=== PATIENT | female | born 1945 | race Caucasian/White ===

== ENCOUNTER 2020-08-07 07:20 | Inpatient (IN) | payer MEDICARE, BC ==
[2020-07-31 11:21] LABS: BASOPHILS # (AUTO) 0.1 X10'3 (0-0.2); BASOPHILS % (AUTO) 1.1 % (0-1); EOSINOPHILS # (AUTO) 0.1 X10'3 (0-0.9); EOSINOPHILS % (AUTO) 2.6 % (0-6); LYMPHOCYTES # (AUTO) 1.4 X10'3 (1.1-4.8); LYMPHOCYTES % (AUTO) 26.9 % (21-51); MEAN CORPUSCULAR HEMOGLOBIN 29.4 PG (27.0-31.0); MEAN CORPUSCULAR HGB CONC 33.8 g/dL (33.0-36.5); MEAN PLATELET VOLUME 8.5 FL (7.4-10.4); MONOCYTES # (AUTO) 0.4 X10'3 (0-0.9); MONOCYTES % (AUTO) 8.4 % (2-12); NEUTROPHILS # (AUTO) 3.1 X10'3 (1.8-7.7); PRE OP HEMATOCRIT 40.3 % (35.0-45.0); PRE OP HEMOGLOBIN 13.6 g/dL (12.0-16.0); PRE OP PLATELET COUNT 240 X10'3 (140-440); RED BLOOD COUNT 4.64 X10'6 (4.20-5.60)
[2020-07-31 11:35] LABS: ALBUMIN 3.9 G/DL (3.4-5.0); ALBUMIN/GLOBULIN RATIO 1.1 (1.1-1.5); ALKALINE PHOSPHATASE 94 IU/L (46-116); BLOOD UREA NITROGEN 28 MG/DL (7-18); BUN/CREATININE RATIO 34.6 (6.6-38.0); CALCIUM 9.5 MG/DL (8.5-10.1); CHLORIDE 106 MMOL/L (99-107); CREATININE 0.81 MG/DL (0.40-0.90); PRE OP ALT 26 U/L (30-65); PRE OP ANION GAP 9 (8-16); PRE OP AST 16 U/L (10-37); PRE OP BILIRUB, TOTAL 0.3 MG/DL (0.0-1.0); PRE OP GLUCOSE 107 MG/DL (70-104); PRE OP POTASSIUM 3.6 MMOL/L (3.4-5.1); PRE OP SODIUM 142 MMOL/L (135-145); TOTAL CARBON DIOXIDE 26.9 MMOL/L (24-32); TOTAL PROTEIN 7.5 G/DL (6.4-8.2); eGFR 69 ML/MIN
[2020-07-31 11:39] LABS: HEMOGLOBIN A1C 5.8 % (4.5-6.2)
[~2020-08-07] VITALS: Ht 160 cm; Wt 70.3 kg
[2020-08-07] VITALS (21 sets, daily range): BP systolic 88–144; BP diastolic 43–68
[~2020-08-07 07:20] MED LIST: AMIT10TA6 PO; AMLO10TA13 PO; CYCL-1 PO; GABA-530 PO; HYDR25TA5 PO; LOSA100T57 PO; MELA10TA2 PO; PANT40TA54 PO; PRAM1TAB6 PO; SERT-434 PO; cefazolin/dext.iso 2gm/100ml IV ONE; famotidine 20mg tablet PO ONE; ringers solution, lacted 1,000 ML IV SCH; vancomycin 1,500 MG in NS 300ml IV soln IV ONE
[2020-08-07 08:43] LABS: CLARITY,URINE CLEAR (Clear); COLOR,URINE STRAW (Yellow); GLUCOSE, URINE NEGATIVE (Neg); KETONES,URINE NEGATIVE (Neg); LEUKOCYTE ESTERASE ,URINE NEGATIVE (Neg); NITRITES, URINE NEGATIVE (Neg); OCCULT BLOOD,URINE NEGATIVE (Neg); PROTEIN,URINE NEGATIVE (Neg); UROBILINOGEN,URINE 0.2 E.U/dL (0.2-1.0)
[2020-08-07 08:47] LABS: UA COLLECTION TYPE VOIDED
[2020-08-07] MEDS: albuterol 2.5 MG/3 ML nebule NEB PRN ×2 (10:44→20:55)
[2020-08-07] MEDS ORDERED: MIDAZolam 1 MG/ML 5ML VIAL ONE (11:15)
[2020-08-07] MEDS ORDERED: fentaNYL/PF 50MCG/1 ML 2ML syringe ONE (11:15)
[2020-08-07] MEDS ORDERED: propofol inj 20 ML IV ONE (11:16)
[2020-08-07] MEDS ORDERED: ROPIVAcaine 0.5% (5mg/ml) 30ml vial ONE (11:58)
[2020-08-07] MEDS ORDERED: ePHEDrine 50MG/ML INJ. ONE (12:08)
[2020-08-07] MEDS ORDERED: dexamethasone sod phosphate 4mg/ml inj. ONE (12:09)
[2020-08-07] MEDS ORDERED: ondansetron/PF 4mg/2ml inj ONE (12:09)
[2020-08-07] MEDS ORDERED: ROPIVAcaine 0.2% (10 MG/5 ML) BOLUS INJECTION POPLITEAL PRN (12:25)
[2020-08-07] MEDS ORDERED: morphine 4 MG/ML inj SYRINge IV PRN (12:25)
[2020-08-07] MEDS ORDERED: ROPIVAcaine 0.2%/PF PUMP/bolus 545 ML POPLITEAL SCH (12:25)
[2020-08-07] MEDS ORDERED: proCHLORperazine 10 MG/2 ml inj IV PRN (12:25)
[2020-08-07] MEDS ORDERED: ondansetron/PF 4mg/2ml inj IV PRN ×2 (12:25→14:35)
[2020-08-07] MEDS ORDERED: meperidine/PF 25mg/ml syringe IV PRN ×3 (12:25)
[2020-08-07] MEDS ORDERED: morphine 2 MG/ML inj. syringe IV PRN (12:25)
[2020-08-07] MEDS ORDERED: ringers solution, lacted 1,000 ML IV SCH (12:25)
[2020-08-07] MEDS ORDERED: bacitracin 15gm ointment TP ONE (14:25)
[2020-08-07] MEDS ORDERED: acetaminophen 325mg tablet PO PRN (14:35)
[2020-08-07] MEDS ORDERED: bisacodyl 10mg suppository rectal RC PRN (14:35)
[2020-08-07] MEDS ORDERED: magnesium hydroxide 30ml (MOM) UD suspension PO PRN (14:35)
[2020-08-07] MEDS ORDERED: diphenhydrAMINE 25mg capsule PO PRN ×2 (14:35)
[2020-08-07] MEDS ORDERED: HYDROcodone/acetaminophen 10/325mg tab PO PRN ×2 (14:35)
--- NOTE | 2020-08-07 16:21 | NUR ---
Report called to receiving nurse. Transferred via BED, 2 BAGS OF Belongings, GLASSES, BILAT HEARING AIDS SENT W/PT TO ROOM 4022A. BLL, CALL LIGHT GIVEN, SIDE RAILS UP X 2. RECEIVING RN NOTIFIED OF PTS ARRIVAL. Special Issues communicated to receiving nurse. YES. Addendum: 08/07/20 at 1645 by Bridget Spence RN Amended: Links added.
--- NOTE | 2020-08-07 18:20 | NUR ---
Problems reprioritized. Patient report given to Chapis, questions answered & plan of care reviewed with Chapis.
--- NOTE | 2020-08-07 18:28 | NUR ---
Patient in room ORTHO 4022. I have received report from Brianne RAMIREZ and had the opportunity to ask questions and assume patient care.
[2020-08-07] MEDS: potassium cl 20mEq in 1/2 NS 1,000 ML IV SCH ×2 (18:56→22:34)
[2020-08-07] MEDS: ceFAZolin/D5W- 1GM premix 50 ML IV SCH (19:45)
[2020-08-07] MEDS ORDERED: sennosides 8.6mg tablet PO SCH (21:00)
[2020-08-07] MEDS ORDERED: Melatonin 3mg tablet PO SCH (22:30)
[2020-08-08 02:00] VITALS: BP 122/60
[2020-08-08 02:15] VITALS: BP 122/60
[2020-08-08] MEDS: ceFAZolin/D5W- 1GM premix 50 ML IV SCH (02:58)
--- NOTE | 2020-08-08 06:16 | NUR ---
Problems reprioritized. Patient report given, questions answered & plan of care reviewed with Shanna RAMIREZ.
--- NOTE | 2020-08-08 06:18 | NUR ---
Patient in room ORTHO 4022. I have received report from Chano RAMIREZ and had the opportunity to ask questions and assume patient care.
[2020-08-08 06:45] VITALS: BP 132/78
[2020-08-08] MEDS: potassium cl 20mEq in 1/2 NS 1,000 ML IV SCH (06:46)
[2020-08-08 06:47] LABS: BASOPHILS % (AUTO) 0.5 % (0-1); EOSINOPHILS % (AUTO) 0 % (0-6); HEMATOCRIT 31.9 % (35.0-45.0); LYMPHOCYTES # (AUTO) 1.3 X10'3 (1.1-4.8); LYMPHOCYTES % (AUTO) 16.1 % (21-51); MEAN CORPUSCULAR HGB CONC 34.5 g/dL (33.0-36.5); MEAN CORPUSCULAR VOLUME 86.9 FL (78-98); MEAN PLATELET VOLUME 8.7 FL (7.4-10.4); MONOCYTES % (AUTO) 12.2 % (2-12); NEUTROPHILS # (AUTO) 5.7 X10'3 (1.8-7.7); NEUTROPHILS % (AUTO) 71.2 % (42-75); PLATELET COUNT 213 X10'3 (140-440); RED BLOOD COUNT 3.67 X10'6 (4.20-5.60)
[2020-08-08 07:08] LABS: ANION GAP 10 (8-16); CHLORIDE 106 MMOL/L (99-107); SODIUM 141 MMOL/L (135-145); TOTAL CARBON DIOXIDE 25.2 MMOL/L (24-32)
[2020-08-08] MEDS ORDERED: gabapentin 300mg capsule PO PRN (07:40)
[2020-08-08] MEDS ORDERED: amitriptyline 10mg tablet PO PRN (07:40)
[2020-08-08] MEDS ORDERED: cyclobenzaprine 10mg tablet PO SCH (08:00)
[2020-08-08] MEDS ORDERED: pantoprazole 40mg Tablet.DR PO SCH (08:00)
[2020-08-08] MEDS ORDERED: sertraline 50mg tablet PO SCH (08:00)
[2020-08-08] MEDS ORDERED: amLODIPine 5mg tablet PO SCH (08:00)
[2020-08-08] MEDS ORDERED: HYDROchlorothiazide 25mg tablet PO SCH (08:00)
[2020-08-08] MEDS: albuterol 2.5 MG/3 ML nebule NEB PRN (08:09)
[2020-08-08] MEDS ORDERED: aspirin 325mg tablet PO SCH (08:30)
--- NOTE | 2020-08-08 08:33 | NUR ---
placed a call to dr. dewitt regarding patients home meds because they were not restarted recieved call back getting the okay to restart all home meds.
[2020-08-08 10:07] VITALS: BP 110/37
--- NOTE | 2020-08-08 14:02 | NUR ---
Patient discharged to home, 18 gauge piv removed from right hand, cannula intact no s/s of phlebitis. Discharge instructions given to both patient and her Michael. Pre medicated with norco prior to discharge. Follow up with Dr. Urban already scheduled
[2020-08-08] MEDS ORDERED: enoxaparin 40mg/0.4ml syringe SUBCUT SCH (20:00)
[2020-08-08] MEDS ORDERED: pramipexole 1mg tablet PO SCH (21:00)
[2020-08-08] MEDS ORDERED: Melatonin 3mg tablet PO SCH (21:00)
[2020-08-08] MEDS ORDERED: losartan 50mg tablet PO SCH (21:00)
== END 2020-08-08 14:00 | disposition home or self-care (01) | DRG 469 ==
LOC: PAS 07:20 → EDSTATUS 07:30 → PAS 14:30 → ORTHO 4S 14:33 → PAS 08-08 14:00 → ORTHO 4S 08-08 14:00
PROVIDERS: ADMIT Podiatrist Foot & Ankle Surgery; ATTEND Podiatrist Foot & Ankle Surgery
PROC: 0Y6V0Z1 Detachment at Right 4th Toe, High, Open Approach (ICD-10-PCS; 2020-08-07)
PROC: 3E0T3BZ Introduction of Anesthetic Agent into Peripheral Nerves and Plexi, Percutaneous Approach (ICD-10-PCS; 2020-08-07)
PROC: 3E0T33Z Introduction of Anti-inflammatory into Peripheral Nerves and Plexi, Percutaneous Approach (ICD-10-PCS; 2020-08-07)
PROC: 0SPF0JZ Removal of Synthetic Substitute from Right Ankle Joint, Open Approach (ICD-10-PCS; 2020-08-07)
PROC: 0SRF0JZ Replacement of Right Ankle Joint with Synthetic Substitute, Open Approach (ICD-10-PCS; principal; 2020-08-07 11:19)
DX: T84.038A Mechanical loosening of other internal prosthetic joint, initial encounter (principal); M19.071 Primary osteoarthritis, right ankle and foot; M20.41 Other hammer toe(s) (acquired), right foot; F32.9 Major depressive disorder, single episode, unspecified; I10 Essential (primary) hypertension; G89.29 Other chronic pain; M21.072 Valgus deformity, not elsewhere classified, left ankle; M21.40 Flat foot [pes planus] (acquired), unspecified foot; J45.909 Unspecified asthma, uncomplicated; Z83.3 Family history of diabetes mellitus; Z79.899 Other long term (current) drug therapy; Z91.041 Radiographic dye allergy status
CPT/HCPCS: 36415; 73600; 76000; 80051; 80053; 81003; 82948; 83036; 85025; 87081; 93005; 94640; 94664; 94760; 97161; 97530; A4618; A6223; A6253; A6449; A7000; C1713; C1776; G0378; J0690; J1100; J2250; J2405; J2704; J2795; J3010; J3370; J3480; J7040; J7120

== ENCOUNTER 2023-03-31 13:26 | Emergency (ER) | payer MEDICARE, BC ==
[~2023-03-31] VITALS: Ht 154.9 cm; Wt 72.7 kg
[~2023-03-31 13:26] MED LIST changes: -LOSA100T57 PO; +LOSA100T58 PO; -cefazolin/dext.iso 2gm/100ml IV ONE; -famotidine 20mg tablet PO ONE; -ringers solution, lacted 1,000 ML IV SCH; -vancomycin 1,500 MG in NS 300ml IV soln IV ONE
[2023-03-31 13:55] LABS: BASOPHILS # (AUTO) 0.1 X10'3 (0-0.2); BASOPHILS % (AUTO) 0.8 % (0-1); EOSINOPHILS # (AUTO) 0.1 X10'3 (0-0.9); EOSINOPHILS % (AUTO) 0.6 % (0-6); HEMATOCRIT 44.9 % (35.0-45.0); LYMPHOCYTES # (AUTO) 1.2 X10'3 (1.1-4.8); LYMPHOCYTES % (AUTO) 7.1 % (21-51); MEAN CORPUSCULAR HEMOGLOBIN 29.3 PG (27.0-31.0); MEAN CORPUSCULAR HGB CONC 33.5 g/dL (33.0-36.5); MEAN CORPUSCULAR VOLUME 87.5 FL (78-98); MEAN PLATELET VOLUME 8.8 FL (7.4-10.4); MONOCYTES % (AUTO) 6.3 % (2-12); NEUTROPHILS % (AUTO) 85.2 % (42-75); PLATELET COUNT 285 X10'3 (140-440); RED BLOOD COUNT 5.13 X10'6 (4.20-5.60); RED CELL DISTRIBUTION WIDTH 13.3 % (11.5-14.5); WHITE BLOOD COUNT 16.4 X10'3 (4.5-11.0)
[2023-03-31 14:27] LABS: ALANINE AMINOTRANSFERASE 26 U/L (12-78); ALBUMIN 3.8 G/DL (3.4-5.0); ALBUMIN/GLOBULIN RATIO 1.1 (1.1-1.5); ALKALINE PHOSPHATASE 83 IU/L (46-116); ANION GAP 10 (8-16); ASPARTATE AMINO TRANSFERASE 17 U/L (10-37); BILIRUBIN,TOTAL 0.8 MG/DL (0.1-1.0); BLOOD UREA NITROGEN 20 MG/DL (7-18); BUN/CREATININE RATIO 21.1 (10.0-20.0); CALCIUM 9.8 MG/DL (8.5-10.1); CHLORIDE 103 MMOL/L (99-107); CREATININE 0.95 MG/DL (0.40-0.90); GLUCOSE 130 MG/DL (70-104); POTASSIUM 3.9 MMOL/L (3.5-5.1); PRO BRAIN NATRIURETIC PEPTIDE 568 PG/ML (0-450); SODIUM 139 MMOL/L (135-145); TOTAL CARBON DIOXIDE 25.8 MMOL/L (24-32); TOTAL PROTEIN 7.4 G/DL (6.4-8.2); eCRCL 37 ML/MIN; eGFR 57 ML/MIN
[2023-03-31] MEDS ORDERED: ondansetron 4mg rapidly disintigrating tab PO ONE (17:10)
[2023-03-31 17:30] LABS: LIPASE 22 U/L (16-77)
[2023-03-31] MEDS ORDERED: mag hydrox/Alum hydrox/simeth 30ml oral suspension PO ONE (17:35)
[2023-03-31] MEDS ORDERED: ketorolac trometh. 30mg/ml inj. IV ONE (17:35)
[2023-03-31] MEDS ORDERED: LIDOcaine Viscous 15ml cup MM ONE (17:35)
[2023-03-31] MEDS ORDERED: normal saline 1000ML IV soln IVB ONE (17:35)
[2023-03-31 17:57] VITALS: BP 132/62; PULSE 61; RESP 20; TEMP 98.3; O2SAT 95
[2023-03-31] MEDS ORDERED: ONDA4TAB12 PO (18:51)
== END 2023-03-31 19:16 | disposition home or self-care (01) ==
LOC: ER 13:27
DX: S46.919A Strain of unspecified muscle, fascia and tendon at shoulder and upper arm level, unspecified arm, initial encounter (principal); M54.9 Dorsalgia, unspecified; I10 Essential (primary) hypertension; Z91.041 Radiographic dye allergy status; Z79.899 Other long term (current) drug therapy; X58.XXXA Exposure to other specified factors, initial encounter; Y93.89 Activity, other specified; Y92.89 Other specified places as the place of occurrence of the external cause; Y99.8 Other external cause status
CPT/HCPCS: 36415; 71045; 80053; 83690; 83880; 84484; 85025; 93005; 96360; 99285; J7030

== ENCOUNTER 2023-06-20 13:17 | Emergency (ER) | payer MEDICARE, BC ==
[~2023-06-20] VITALS: Ht 154.9 cm; Wt 71.6 kg
[~2023-06-20 13:17] MED LIST changes: +ONDA4TAB12 PO
[2023-06-20 14:44] LABS: BASOPHILS # (AUTO) 0.1 X10'3 (0-0.2); BASOPHILS % (AUTO) 1.5 % (0-1); EOSINOPHILS # (AUTO) 0.2 X10'3 (0-0.9); EOSINOPHILS % (AUTO) 2.4 % (0-6); HEMATOCRIT 43.4 % (35.0-45.0); HEMOGLOBIN 14.7 g/dl (12.0-16.0); LYMPHOCYTES # (AUTO) 1.6 X10'3 (1.1-4.8); LYMPHOCYTES % (AUTO) 25.6 % (21-51); MEAN CORPUSCULAR HEMOGLOBIN 29.6 PG (27.0-31.0); MEAN CORPUSCULAR HGB CONC 33.8 g/dL (33.0-36.5); MEAN CORPUSCULAR VOLUME 87.7 FL (78-98); MEAN PLATELET VOLUME 9.4 FL (7.4-10.4); MONOCYTES # (AUTO) 0.6 X10'3 (0-0.9); NEUTROPHILS # (AUTO) 3.9 X10'3 (1.8-7.7); NEUTROPHILS % (AUTO) 61.5 % (42-75); PLATELET COUNT 241 X10'3 (140-440); RED BLOOD COUNT 4.95 X10'6 (4.20-5.60); RED CELL DISTRIBUTION WIDTH 14.1 % (11.5-14.5); WHITE BLOOD COUNT 6.3 X10'3 (4.5-11.0)
[2023-06-20 15:00] LABS: ALANINE AMINOTRANSFERASE 22 U/L (12-78); ALBUMIN 3.4 G/DL (3.4-5.0); ALKALINE PHOSPHATASE 79 IU/L (46-116); ANION GAP 13 (8-16); ASPARTATE AMINO TRANSFERASE 12 U/L (10-37); BILIRUBIN,TOTAL 0.4 MG/DL (0.1-1.0); BLOOD UREA NITROGEN 25 MG/DL (7-18); BUN/CREATININE RATIO 28.4 (10.0-20.0); CALCIUM 9.2 MG/DL (8.5-10.1); CHLORIDE 110 MMOL/L (99-107); CREATININE 0.88 MG/DL (0.40-0.90); POTASSIUM 3.9 MMOL/L (3.5-5.1); SODIUM 149 MMOL/L (135-145); TOTAL CARBON DIOXIDE 26.4 MMOL/L (24-32); TOTAL PROTEIN 6.9 G/DL (6.4-8.2); eCRCL 40 ML/MIN; eGFR 62 ML/MIN
[2023-06-20 15:07] LABS: PRO BRAIN NATRIURETIC PEPTIDE 436 PG/ML (0-450)
[2023-06-20 15:10] LABS: GLUCOSE 130 MG/DL (70-104)
[2023-06-20] MEDS ORDERED: APIX5TAB3 PO (18:05)
[2023-06-20] MEDS ORDERED: PRAM1TAB6 PO (18:05)
[2023-06-20] MEDS ORDERED: HYDR25TA5 PO (18:05)
[2023-06-20 18:21] VITALS: BP 163/91; PULSE 88; RESP 16; TEMP 97.9; O2SAT 100
== END 2023-06-20 18:23 | disposition home or self-care (01) ==
LOC: ER 13:18
DX: I10 Essential (primary) hypertension (principal); I48.91 Unspecified atrial fibrillation; Z91.041 Radiographic dye allergy status; Z79.899 Other long term (current) drug therapy
CPT/HCPCS: 36415; 71045; 80053; 83880; 84484; 85025; 93005; 99285

== ENCOUNTER 2023-08-23 21:31 | Inpatient (IN) | payer MEDICARE, OTHER ==
[~2023-08-23] VITALS: Ht 154.9 cm; Wt 73.5 kg
[2023-08-23] VITALS (7 sets, daily range): BP systolic 130–174; BP diastolic 64–100; PULSE 80–90; RESP 15–16; O2SAT 90–92
[~2023-08-23 21:31] MED LIST changes: +ALBU8HFA INH; +APIX5TAB3 PO; +CEFD300C3 PO; -CYCL-1 PO; -HYDR25TA5 PO; +IPRA4AER IH; +LAN0.125T PO; -LOSA100T58 PO; -MELA10TA2 PO; +METO-411 PO; -ONDA4TAB12 PO; +VALS320T17 PO
[2023-08-23] MEDS ORDERED: iohexol 350MG/ML 100ml bottle IV ONE (21:38)
[2023-08-23 22:04] LABS: BASOPHILS # (AUTO) 0.1 X10'3 (0-0.2); BASOPHILS % (AUTO) 1.1 % (0-1); EOSINOPHILS # (AUTO) 0.2 X10'3 (0-0.9); EOSINOPHILS % (AUTO) 2.6 % (0-6); HEMATOCRIT 36.6 % (35.0-45.0); HEMOGLOBIN 12.6 g/dl (12.0-16.0); LYMPHOCYTES # (AUTO) 2.2 X10'3 (1.1-4.8); LYMPHOCYTES % (AUTO) 30.5 % (21-51); MEAN CORPUSCULAR HEMOGLOBIN 29.7 PG (27.0-31.0); MEAN CORPUSCULAR HGB CONC 34.4 g/dL (33.0-36.5); MEAN CORPUSCULAR VOLUME 86.3 FL (78-98); MEAN PLATELET VOLUME 8.6 FL (7.4-10.4); MONOCYTES # (AUTO) 0.6 X10'3 (0-0.9); MONOCYTES % (AUTO) 7.5 % (2-12); NEUTROPHILS # (AUTO) 4.3 X10'3 (1.8-7.7); NEUTROPHILS % (AUTO) 58.3 % (42-75); PLATELET COUNT 340 X10'3 (140-440); RED BLOOD COUNT 4.24 X10'6 (4.20-5.60); RED CELL DISTRIBUTION WIDTH 14.1 % (11.5-14.5); WHITE BLOOD COUNT 7.3 X10'3 (4.5-11.0)
[2023-08-23 22:12] LABS: ALBUMIN 3.6 G/DL (3.4-5.0); ANION GAP 7 (8-16); BLOOD UREA NITROGEN 26 MG/DL (7-18); BUN/CREATININE RATIO 29.9 (10.0-20.0); CALCIUM 9.8 MG/DL (8.5-10.1); CHLORIDE 109 MMOL/L (99-107); CREATININE 0.87 MG/DL (0.40-0.90); GLUCOSE 119 MG/DL (70-104); POTASSIUM 4.1 MMOL/L (3.5-5.1); SODIUM 143 MMOL/L (135-145); TOTAL CARBON DIOXIDE 26.8 MMOL/L (24-32); eCRCL 41 ML/MIN; eGFR 63 ML/MIN
[2023-08-23 22:16] LABS: APTT 22 SECONDS (22-32); PROTHROMBIN TIME 10.1 SECONDS (9.0-12.0)
[2023-08-23] MEDS ORDERED: LORazepam 2 mg/ml vial IV ONE (22:25)
[2023-08-23] MEDS: diazepam inj 5 MG/ML inj. IV ONE (22:40)
[2023-08-23] MEDS: TENECTEPLASE IV ONE (22:49)
[2023-08-23] MEDS: [UNRECOGNIZED DRUG - OTHER] IV ONE (22:49)
[2023-08-24] VITALS (50 sets, daily range): BP systolic 94–157; BP diastolic 37–98; PULSE 52–107; RESP 10–29; O2SAT 89–96
[2023-08-24] MEDS: gabapentin 300mg capsule PO ONE (00:12)
[2023-08-24] MEDS ORDERED: niCARDipine-NS 40mg/200ml IVPB 200 ML IV PRN (00:30)
[2023-08-24] MEDS ORDERED: tenecteplase 50mg kit IV ONE (01:00)
[2023-08-24] MEDS: pramipexole 1mg tablet PO SCH (01:37)
[2023-08-24] MEDS: LORazepam 1 MG tablet PO PRN (02:50)
[2023-08-24] MEDS ORDERED: LAN0.125T PO (08:32)
[2023-08-24] MEDS ORDERED: AMLO5TAB16 PO (08:32)
[2023-08-24] MEDS ORDERED: EZET10TA48 PO (08:32)
[2023-08-24] MEDS ORDERED: ALBU18HF2 IH (08:32)
[2023-08-24] MEDS ORDERED: PRAM1TAB6 PO (08:32)
[2023-08-24] MEDS ORDERED: VALS160T30 PO (08:32)
[2023-08-24] MEDS ORDERED: CLON0.1T2 PO (08:32)
[2023-08-24] MEDS ORDERED: HYDR25TA4 PO (08:32)
[2023-08-24] MEDS ORDERED: CLOB30CR11 TOP (08:32)
[2023-08-24] MEDS ORDERED: APIX5TAB3 PO (08:32)
[2023-08-24] MEDS ORDERED: METO-411 PO (08:32)
[2023-08-24] MEDS ORDERED: TIMO5DRO15 EACHEYE (08:32)
[2023-08-24] MEDS ORDERED: acetaminophen 325mg tablet PO PRN (11:40)
[2023-08-24] MEDS ORDERED: clobetasol 0.05% cream 30gm TP SCH (13:50)
[2023-08-24] MEDS ORDERED: amitriptyline 10mg tablet PO PRN (13:50)
[2023-08-24 18:51] LABS: HEMOGLOBIN A1C 5.7 % (4.5-6.2)
[2023-08-24] MEDS: gabapentin 100mg capsule PO PRN (18:52)
[2023-08-24] MEDS: apixaban 5mg tablet PO SCH (20:00)
[2023-08-24] MEDS: pantoprazole 40mg Tablet.DR PO SCH (20:07)
[2023-08-24] MEDS: albuterol 2.5 MG/3 ML nebule NEB PRN (20:36)
[2023-08-24] MEDS: pramipexole 0.25mg tablet PO SCH (22:01)
[2023-08-25] VITALS (35 sets, daily range): BP systolic 101–174; BP diastolic 40–71; PULSE 69–142; RESP 12–33; TEMP 99; O2SAT 89–96
[2023-08-25 06:20] LABS: CHOL/HDL RATIO 3.8 (0.00-4.99); CHOLESTEROL 172 MG/DL (0-200); HDL CHOLESTEROL 45 MG/DL (35-60); LDL CHOLESTEROL 102 MG/DL (50-100); TRIGLYCERIDES 134 MG/DL (20-135)
[2023-08-25] MEDS: HALLS - SOOTHE MENTHOL 1.8 MG cough drop LOZENGE MM PRN (06:33)
[2023-08-25] MEDS: timolol 0.5% ophthalmic solution 5ml bottle EACHEYE SCH (07:27)
[2023-08-25] MEDS: cloNIDine 0.1 mg tablet PO SCH (07:27)
[2023-08-25] MEDS: amLODIPine 5mg tablet PO SCH (07:28)
[2023-08-25] MEDS: sertraline 50mg tablet PO SCH (07:28)
[2023-08-25] MEDS: metoprolol succinate 25mg (24-HOUR) SR. Tablet PO SCH (07:28)
[2023-08-25] MEDS: ezetimibe 10mg tablet PO SCH (07:28)
[2023-08-25] MEDS: digoxin 125mcg (0.125mg) tablet PO SCH (07:28)
[2023-08-25] MEDS: losartan 50mg tablet PO SCH (07:28)
[2023-08-25] MEDS: HYDROchlorothiazide 25mg tablet PO SCH (07:28)
[2023-08-25] MEDS ORDERED: pramipexole 1mg tablet PO SCH (08:00)
[2023-08-25] MEDS ORDERED: CLON0.1T2 PO (08:31)
[2023-08-25] MEDS ORDERED: cloNIDine 0.1 mg tablet PO PRN (08:40)
[2023-08-25] MEDS: guaiFENesin 200mg/20mg codeine phos 10ml UD oral syrup PO PRN (15:08)
[2023-08-25] MEDS: ondansetron/PF 4mg/2ml inj IV PRN (16:40)
[2023-08-25] MEDS: ipratropium/albuterol 3ml nebule NEB PRN (16:41)
[2023-08-25 18:40] LABS: BASOPHILS # (AUTO) 0.1 X10'3 (0-0.2); BASOPHILS % (AUTO) 0.7 % (0-1); EOSINOPHILS % (AUTO) 0.2 % (0-6); HEMATOCRIT 34.7 % (35.0-45.0); HEMOGLOBIN 11.6 g/dl (12.0-16.0); LYMPHOCYTES # (AUTO) 0.5 X10'3 (1.1-4.8); LYMPHOCYTES % (AUTO) 6.7 % (21-51); MEAN CORPUSCULAR HEMOGLOBIN 29.2 PG (27.0-31.0); MEAN CORPUSCULAR HGB CONC 33.5 g/dL (33.0-36.5); MEAN CORPUSCULAR VOLUME 87.4 FL (78-98); MEAN PLATELET VOLUME 8.6 FL (7.4-10.4); MONOCYTES # (AUTO) 0.6 X10'3 (0-0.9); NEUTROPHILS # (AUTO) 6.4 X10'3 (1.8-7.7); NEUTROPHILS % (AUTO) 84.4 % (42-75); PLATELET COUNT 224 X10'3 (140-440); RED BLOOD COUNT 3.97 X10'6 (4.20-5.60); RED CELL DISTRIBUTION WIDTH 14.1 % (11.5-14.5); WHITE BLOOD COUNT 7.5 X10'3 (4.5-11.0)
[2023-08-25 18:58] LABS: ALANINE AMINOTRANSFERASE 24 U/L (12-78); ALBUMIN 3.1 G/DL (3.4-5.0); ALBUMIN/GLOBULIN RATIO 0.9 (1.1-1.5); ALKALINE PHOSPHATASE 66 IU/L (46-116); ANION GAP 7 (8-16); ASPARTATE AMINO TRANSFERASE 12 U/L (10-37); BILIRUBIN,TOTAL 0.6 MG/DL (0.1-1.0); BLOOD UREA NITROGEN 11 MG/DL (7-18); BUN/CREATININE RATIO 12.2 (10.0-20.0); CALCIUM 8.6 MG/DL (8.5-10.1); CHLORIDE 102 MMOL/L (99-107); GLUCOSE 129 MG/DL (70-104); POTASSIUM 3.5 MMOL/L (3.5-5.1); SODIUM 135 MMOL/L (135-145); TOTAL CARBON DIOXIDE 25.8 MMOL/L (24-32); TOTAL PROTEIN 6.5 G/DL (6.4-8.2); eCRCL 40 ML/MIN; eGFR 61 ML/MIN
[2023-08-25] MEDS: fluticasone nasal spray 16GM bottle NS SCH (20:42)
[2023-08-25] MEDS ORDERED: pramipexole 0.25mg tablet PO SCH (21:00)
[2023-08-26] VITALS (15 sets, daily range): BP systolic 94–122; BP diastolic 39–54; PULSE 59–99; RESP 15–20; TEMP 96.3–98.5; O2SAT 87–98
[2023-08-26] MEDS: ringers solution, lacted 1,000 ML IV ONE (13:17)
[2023-08-26 13:50] LABS: DIGOXIN 0.6 NG/ML (0.9-1.9); THYROID STIMULATING HORMONE 2.2 ulU/ml (0.34-4.50)
[2023-08-26] MEDS: ipratropium/albuterol 3ml nebule NEB SCH (15:00)
[2023-08-26] MEDS: methylPREDNISolone sod succ 125mg/2ml vial IV SCH (15:05)
[2023-08-26] MEDS: CefTRIAXone/D5W-Rocephin 1gm 50 ML IV SCH (15:05)
[2023-08-26] MEDS: acetaminophen w/codeine (30MG) #3 tablet PO SCH (17:53)
[2023-08-27] VITALS (8 sets, daily range): BP systolic 100–112; BP diastolic 45–56; PULSE 67–80; RESP 14–21; TEMP 96.8–97.8; O2SAT 95–98
[2023-08-27] MEDS: azithromycin/NS 500mg/250ml 250 ML IV SCH (09:42)
== END 2023-08-27 16:16 | disposition home health service (06) | DRG 61 ==
LOC: ER 21:32 → ED HOLD 08-24 00:31 → CICU 2S 08-24 01:07 → ORTHO 4S 08-25 18:08
PROVIDERS: ADMIT Surgery Surgical Critical Care; ATTEND Family Medicine
DX: I63.9 Cerebral infarction, unspecified (principal); I50.31 Acute diastolic (congestive) heart failure; G81.91 Hemiplegia, unspecified affecting right dominant side; I11.0 Hypertensive heart disease with heart failure; J45.909 Unspecified asthma, uncomplicated; E86.1 Hypovolemia; G25.81 Restless legs syndrome; I48.91 Unspecified atrial fibrillation; J98.4 Other disorders of lung; Z79.01 Long term (current) use of anticoagulants; Z86.12 Personal history of poliomyelitis; Z91.041 Radiographic dye allergy status
CPT/HCPCS: 36415; 70450; 70544; 70547; 70551; 71045; 80048; 80053; 80061; 80162; 82948; 83036; 83880; 84443; 84484; 85025; 85379; 85610; 85730; 87081; 92508; 92616; 93005; 93308; 94640; 94760; 97116; 97161; 97530; 99291; A4615; G0378; J0456; J0696; J2405; J2919; J3101; J3360; J3490; J7040; J7120; Q9967

== ENCOUNTER 2024-11-13 14:55 | Outpatient (CLI) | payer MEDICARE, BC ==
[~2024-11-13 14:55] MED LIST changes: +ALBU18HF2 IH; -ALBU8HFA INH; +AMIT10TA13 PO; -AMIT10TA6 PO; -AMLO10TA13 PO; +AMLO5TAB16 PO; -CEFD300C3 PO; +CLOB30CR11 TOP; +CLON0.1T2 PO; +EZET10TA48 PO; -IPRA4AER IH; +TIMO5DRO15 EACHEYE; +VALS160T30 PO; -VALS320T17 PO
--- NOTE | 2024-11-13 21:12 | RADIOLOGY REPORT ---
EXAM: CT CT LOWER EXTREMITY INDICATION: EFFUSION, RIGHT ANKLE,PRIMARY OSTEOARTHRITIS, RIGHT ANKLE AND FOOT TECHNIQUE: Axial images of right lower extremity have been obtained along with coronal and sagittal r eformatted images. All CT scans at this facility use dose modulation, iterative reconstruction, and/o r weight based dosing when appropriate to reduce radiation dose to as low as reasonably achievable. COMPARISON: None FINDINGS: BONES: Right tibiotalar joint arthroplasty. Polyethylene spacer appears within normal limits. no oss eous lucency along the hardware bone interfaces. No perihardware fracture. Fusion of the posterior saenz btalar joint. Hardware of the midfoot. Achilles insertional enthesophyte. Small plantar calcaneal sp ur. MUSCLES: Severe fatty atrophy of the entirety of the intrinsic distal calf musculature. Severe fatty atrophy of the intrinsic musculature of the foot JOINT SPACES: No joint effusion. TENDONS/LIGAMENTS: Nonvisualization of the peroneal brevis tendon. Calcification along the distal ach illes tendon without significant thickening OTHER: Surrounding subcutaneous tissue edema. IMPRESSION: 1. No CT evidence of joint effusion. 2. Tibiotalar joint arthroplasty appears intact without evidence of hardware complication.
== END 2024-11-13 23:59 | disposition home or self-care (01) ==
LOC: RAD 14:55
PROVIDERS: ATTEND Podiatrist Foot & Ankle Surgery
DX: M25.471 Effusion, right ankle (principal); M19.071 Primary osteoarthritis, right ankle and foot; Z89.441 Acquired absence of right ankle
CPT/HCPCS: 73700